=== PATIENT | female | born 1970 | race Caucasian/White ===

== ENCOUNTER 2024-01-31 15:51 | Inpatient (IN) ==
[2024-01-31] MEDS ORDERED: IOPAMIDOL 100 ML BOTTLE IV ONE (15:52)
[2024-01-31] MEDS: METHOCARBAMOL 750 MG TABLET PO ONE (17:27)
[2024-01-31] MEDS: oxyCODONE IR 5 MG TABLET PO ONE (17:29)
[2024-01-31] MEDS: KETOROLAC 30 MG/ML VIAL IM ONE (17:29)
[2024-01-31 18:41] LABS: Basophils # (Auto) 0.04 K/mcL (0.00-0.30); Basophils % (Auto) 0.2 % (0.0-2.0); Eosinophils # (Auto) 0.01 K/mcL (0.00-0.70); Eosinophils % (Auto) 0 % (0.0-7.0); Hematocrit 30.3 % (34.1-44.9); Lymphocytes # (Auto) 1.07 K/mcL (1.50-4.80); Lymphocytes % (Auto) 4.4 % (15.5-49.0); Mean Cell Volume 69.8 fL (80.0-100.0); Mean Corpuscular HGB Conc 29.7 g/dL (31.0-36.0); Mean Platelet Volume 10.1 fL (8.8-12.5); Monocytes # (Auto) 1.68 K/mcL (0.10-0.90); Neutrophils % (Auto) 87.6 % (38.0-78.0); Platelet Count 495 K/mcL (140-440); RBC 4.34 M/mcL (3.59-5.38); Red Cell Distribution Width 16.3 % (11.5-14.5); WBC 24.2 K/mcL (4.5-11.0)
[2024-01-31 18:46] LABS: Blood Urea Nitrogen 15 mg/dL (6-20); Carbon Dioxide 22 mmol/L (22-30); Chloride 95 mmol/L (96-108); Glomerular Filtration Rate 105; Glucose 220 mg/dL (70-105); Potassium 4.1 mmol/L (3.3-5.1); Sodium 133 mmol/L (133-145)
[2024-01-31 19:05] LABS: Erythrocyte Sedimentation Rate 77 mm/hr (0-30)
[2024-01-31] MEDS: CEFEPIME 2 GM VIAL IV ONE (19:24)
[2024-01-31 19:37] LABS: Crystals,Body Fluid None Seen (None Seen)
[2024-01-31 19:50] LABS: Glucose,Synovial Fluid < 2 mg/dL
[2024-01-31 20:08] LABS: Appearance,Synovial Fluid Purulent; Color,Synovial Fluid White; Lymphocytes,Synovial Fluid 0 %; Neutrophils,Synovial Fluid 95 % (0-25); Nucleated Cells,Synovial Fld 186300 /cumm; Other Cells,Synovial Fluid 5 %
[2024-01-31] MEDS: 0.9 % SODIUM CHLORIDE 1,000 ML IV ONE (20:47)
[2024-01-31] MEDS: HYDROmorphone 1 MG/ML SYRINGE IV ONE (20:52)
[2024-01-31] MEDS: VANCOMYCIN 1,500 MG in DEXTROSE 5% IN WATER 500 ML IV ONE (21:06)
[2024-02-01] MEDS ORDERED: VANCOMYCIN PER PHARMACY IV SCH (00:50)
[2024-02-01] MEDS: ACETAMINOPHEN 1,000 MG/100 ML BAG IV ONE (00:59)
[2024-02-01] MEDS: 0.9 % SODIUM CHLORIDE 500 ML IV ONE (01:46)
[2024-02-01] MEDS: LORazepam 2 MG/ML VIAL IV PRN (01:59)
[2024-02-01] MEDS: CEFEPIME 2 GM VIAL IV SCH (02:22)
[2024-02-01] MEDS: LOSARTAN 50 MG TABLET PO ONE ×2 (02:23→07:41)
[2024-02-01] MEDS: morphine 4 MG/ML VIAL IV PRN ×2 (02:24→06:53)
[2024-02-01] MEDS: LORazepam 2 MG/ML VIAL ONE ×2 (02:27→04:25)
[2024-02-01] MEDS: morphine 4 MG/ML VIAL ONE (02:28)
[2024-02-01] MEDS ORDERED: DEXTROSE 31 GM ORAL.SUSP PO PRN (04:06)
[2024-02-01] MEDS ORDERED: DEXTROSE 50% 50 ML VIAL IV PRN (04:06)
[2024-02-01] MEDS: METHOCARBAMOL 1,000 MG/10 ML VIAL IV ONE (04:11)
[2024-02-01] MEDS: LORazepam 2 MG/ML VIAL IV ONE (04:11)
[2024-02-01] MEDS: 0.9 % SODIUM CHLORIDE 1,000 ML IV SCH (04:11)
[2024-02-01] MEDS: DEXTROSE 50% 50 ML VIAL IV ONE (04:12)
[2024-02-01] MEDS: METHOCARBAMOL 1,000 MG/10 ML VIAL ONE (04:25)
[2024-02-01] MEDS: DEXTROSE 50% 50 ML SYRINGE IV ONE (04:25)
[2024-02-01 06:41] LABS: Basophils # (Auto) 0.03 K/mcL (0.00-0.30); Basophils % (Auto) 0.2 % (0.0-2.0); Eosinophils # (Auto) 0.01 K/mcL (0.00-0.70); Eosinophils % (Auto) 0.1 % (0.0-7.0); Hematocrit 32.8 % (34.1-44.9); Hemoglobin 8.7 g/dL (11.2-15.7); Lymphocytes # (Auto) 1.04 K/mcL (1.50-4.80); Lymphocytes % (Auto) 6.1 % (15.5-49.0); Mean Cell Volume 76.8 fL (80.0-100.0); Mean Corpuscular HGB Conc 26.5 g/dL (31.0-36.0); Mean Platelet Volume 9.7 fL (8.8-12.5); Monocytes # (Auto) 1.67 K/mcL (0.10-0.90); Monocytes % (Auto) 9.7 % (1.0-12.0); Neutrophils % (Auto) 83.2 % (38.0-78.0); Platelet Count 393 K/mcL (140-440); RBC 4.27 M/mcL (3.59-5.38); Red Cell Distribution Width 16.8 % (11.5-14.5); WBC 17.2 K/mcL (4.5-11.0)
[2024-02-01] MEDS: INSULIN GLARGINE, HUMAN 1 UNIT/0.01 ML SQ ONE (06:45)
[2024-02-01] MEDS: 0.9 % SODIUM CHLORIDE 10 ML SYRINGE IV SCH ×2 (06:46→21:45)
[2024-02-01 06:52] LABS: ALT/SGPT 15 U/L (<40); AST/SGOT 21 U/L (<32); Albumin 3.2 gm/dL (3.2-5.2); Albumin/Globulin Ratio 0.8 (1.0-2.3); Alkaline Phosphatase 123 U/L (39-117); Bilirubin,Direct < 0.2 mg/dL (0-0.3); Bilirubin,Total 0.4 mg/dL (0.1-1.0); Blood Urea Nitrogen 14 mg/dL (6-20); Calcium 8.3 mg/dL (8.6-10.4); Carbon Dioxide 16 mmol/L (22-30); Chloride 98 mmol/L (96-108); Globulin 3.8 gm/dL (2.2-3.7); Glomerular Filtration Rate 111; Glucose 229 mg/dL (70-105); Lactate Dehydrogenase 189 U/L (135-225); Phosphorous 3.2 mg/dL (2.5-4.5); Potassium 3.8 mmol/L (3.3-5.1); Sodium 130 mmol/L (133-145); Triglycerides 108 mg/dL (<150); Uric Acid 2.8 mg/dL (2.5-8.0)
[2024-02-01] MEDS: ACETAMINOPHEN 1,000 MG/100 ML BAG IV PRN (06:54)
[2024-02-01] MEDS: INSULIN LISPRO 1 UNIT/0.01 ML UNIT SQ SCH (07:49)
[2024-02-01] MEDS ORDERED: NALOXONE HCL 0.4 MG/ML VIAL IV PRN ×2 (07:53→14:09)
[2024-02-01 11:00] LABS: Hemoglobin A1C 7.8 % Hgb (4.0-6.0)
[2024-02-01] MEDS ORDERED: PHENYLephrine 1 MG/10 ML SYRINGE (ANEST) ONE (12:25)
[2024-02-01] MEDS ORDERED: GLYCOPYRROLATE 0.2 MG/ML VIAL IV ONE (12:25)
[2024-02-01] MEDS ORDERED: LIDOCAINE 2% PF 5 ML VIAL ONE (12:25)
[2024-02-01] MEDS ORDERED: KETOROLAC 30 MG/ML VIAL ONE (12:25)
[2024-02-01] MEDS ORDERED: DEXAMETHASONE 10 MG/ML VIAL ONE (12:25)
[2024-02-01] MEDS ORDERED: ONDANSETRON 4 MG/2 ML VIAL ONE (12:25)
[2024-02-01] MEDS ORDERED: MIDAZOLAM 2 MG/2 ML VIAL ONE (12:26)
[2024-02-01] MEDS ORDERED: KETAMINE 50 MG/ML Syringe IV ONE ×2 (12:26→13:30)
[2024-02-01] MEDS ORDERED: PROPOFOL 200 MG/20 ML VIAL IV ONE (12:26)
[2024-02-01] MEDS ORDERED: ePHEDrine 50 MG/5 ML SYRINGE (ANEST) IV ONE ×2 (12:26→14:02)
[2024-02-01] MEDS ORDERED: METOCLOPRAMIDE 10 MG/2 ML VIAL ONE (12:26)
[2024-02-01] MEDS: VANCOMYCIN 2,000 MG in DEXTROSE 5% IN WATER 500 ML IV SCH (13:30)
[2024-02-01] MEDS ORDERED: fentaNYL 100 MCG/2 ML VIAL ONE ×2 (13:31→13:49)
[2024-02-01] MEDS ORDERED: HYDROmorphone 0.5 MG/0.5 ML SYRINGE ONE ×2 (13:42→13:49)
[2024-02-01] MEDS: BUPIVACAINE 0.5% 50 ML VIAL IJ ONE (13:46)
[2024-02-01] MEDS ORDERED: IPRATROPIUM/ALBUTEROL 3 ML AMPUL.NEB NEB PRN (14:09)
[2024-02-01] MEDS ORDERED: ONDANSETRON 4 MG/2 ML VIAL IV PRN (14:09)
[2024-02-01] MEDS ORDERED: fentaNYL 100 MCG/2 ML VIAL IV PRN (14:09)
[2024-02-01] MEDS ORDERED: HYDROmorphone 0.5 MG/0.5 ML SYRINGE IV PRN (14:09)
[2024-02-01] MEDS ORDERED: 0.9 % SODIUM CHLORIDE 10 ML SYRINGE IV PRN (14:32)
[2024-02-01] MEDS: LACTATED RINGERS 1,000 ML IV SCH (16:18)
[2024-02-01] MEDS ORDERED: SODIUM CHLORIDE IRRIG SOLUTION 250 ML BOTTLE IRR ONE (16:20)
[2024-02-02 07:14] LABS: ALT/SGPT 37 U/L (<40); AST/SGOT 60 U/L (<32); Albumin 3.1 gm/dL (3.2-5.2); Albumin/Globulin Ratio 0.9 (1.0-2.3); Alkaline Phosphatase 136 U/L (39-117); Bilirubin,Direct < 0.2 mg/dL (0-0.3); Bilirubin,Total 0.2 mg/dL (0.1-1.0); Blood Urea Nitrogen 21 mg/dL (6-20); Calcium 8.1 mg/dL (8.6-10.4); Carbon Dioxide 19 mmol/L (22-30); Chloride 95 mmol/L (96-108); Globulin 3.5 gm/dL (2.2-3.7); Glomerular Filtration Rate 111; Glucose 398 mg/dL (70-105); Lactate Dehydrogenase 189 U/L (135-225); Phosphorous 2.8 mg/dL (2.5-4.5); Sodium 128 mmol/L (133-145); Triglycerides 131 mg/dL (<150); Uric Acid 3.9 mg/dL (2.5-8.0)
[2024-02-02 07:21] LABS: Basophils # (Auto) 0.01 K/mcL (0.00-0.30); Basophils % (Auto) 0.1 % (0.0-2.0); Eosinophils # (Auto) 0 K/mcL (0.00-0.70); Eosinophils % (Auto) 0 % (0.0-7.0); Hematocrit 23.5 % (34.1-44.9); Hemoglobin 6.8 g/dL (11.2-15.7); Lymphocytes # (Auto) 0.89 K/mcL (1.50-4.80); Lymphocytes % (Auto) 6.1 % (15.5-49.0); Mean Cell Volume 70.8 fL (80.0-100.0); Mean Corpuscular HGB Conc 28.9 g/dL (31.0-36.0); Mean Platelet Volume 10.1 fL (8.8-12.5); Monocytes # (Auto) 1.34 K/mcL (0.10-0.90); Monocytes % (Auto) 9.1 % (1.0-12.0); Platelet Count 325 K/mcL (140-440); RBC 3.32 M/mcL (3.59-5.38); Red Cell Distribution Width 16.6 % (11.5-14.5); WBC 14.7 K/mcL (4.5-11.0)
[2024-02-02 08:32] LABS: Hematocrit 24.2 % (34.1-44.9); Hemoglobin 7.2 g/dL (11.2-15.7)
[2024-02-02] MEDS: ACETAMINOPHEN 1,000 MG/100 ML BAG IV PRN (08:40)
[2024-02-02] MEDS: INSULIN GLARGINE, HUMAN 1 UNIT/0.01 ML SQ SCH (08:57)
[2024-02-02] MEDS: 0.9 % SODIUM CHLORIDE 250 ML IV SCH ×2 (09:12→19:36)
[2024-02-02] MEDS: 0.9 % SODIUM CHLORIDE 500 ML IV ONE (09:17)
[2024-02-02] MEDS: INSULIN LISPRO 1 UNIT/0.01 ML UNIT SQ ONE (15:01)
[2024-02-02] MEDS: INSULIN GLARGINE, HUMAN 1 UNIT/0.01 ML SQ ONE (15:02)
[2024-02-02 16:47] LABS: Hematocrit 23.2 % (34.1-44.9); Hemoglobin 6.8 g/dL (11.2-15.7)
[2024-02-02] MEDS: INSULIN LISPRO 1 UNIT/0.01 ML UNIT SQ SCH (17:36)
[2024-02-02] MEDS: CYCLOBENZAPRINE 10 MG TABLET PO ONE (22:31)
[2024-02-02] MEDS: SENNOSIDES 1 TABLET PO PRN (22:31)
[2024-02-03 06:49] LABS: Basophils # (Auto) 0.03 K/mcL (0.00-0.30); Basophils % (Auto) 0.2 % (0.0-2.0); Eosinophils # (Auto) 0.23 K/mcL (0.00-0.70); Eosinophils % (Auto) 1.2 % (0.0-7.0); Hematocrit 28.8 % (34.1-44.9); Hemoglobin 8.8 g/dL (11.2-15.7); Lymphocytes % (Auto) 9.1 % (15.5-49.0); Mean Cell Volume 71.5 fL (80.0-100.0); Mean Corpuscular HGB Conc 30.6 g/dL (31.0-36.0); Monocytes # (Auto) 1.77 K/mcL (0.10-0.90); Neutrophils % (Auto) 79.3 % (38.0-78.0); Platelet Count 418 K/mcL (140-440); RBC 4.03 M/mcL (3.59-5.38); Red Cell Distribution Width 17.5 % (11.5-14.5); WBC 19.7 K/mcL (4.5-11.0)
[2024-02-03 07:09] LABS: ALT/SGPT 50 U/L (<40); AST/SGOT 50 U/L (<32); Albumin 3.4 gm/dL (3.2-5.2); Albumin/Globulin Ratio 0.9 (1.0-2.3); Alkaline Phosphatase 152 U/L (39-117); Bilirubin,Direct < 0.2 mg/dL (0-0.3); Bilirubin,Total 0.3 mg/dL (0.1-1.0); Blood Urea Nitrogen 15 mg/dL (6-20); Carbon Dioxide 20 mmol/L (22-30); Chloride 97 mmol/L (96-108); Globulin 3.8 gm/dL (2.2-3.7); Glomerular Filtration Rate 120; Glucose 272 mg/dL (70-105); Lactate Dehydrogenase 218 U/L (135-225); Sodium 132 mmol/L (133-145); Triglycerides 186 mg/dL (<150); Uric Acid 3.4 mg/dL (2.5-8.0)
[2024-02-03] MEDS: INSULIN GLARGINE, HUMAN 1 UNIT/0.01 ML SQ SCH (08:46)
[2024-02-03] MEDS: ceFAZolin 1 GM VIAL IV SCH (08:46)
[2024-02-03] MEDS: PANTOPRAZOLE 40 MG VIAL IV ONE (11:16)
[2024-02-03] MEDS: oxyCODONE IR 5 MG TABLET PO PRN (11:16)
[2024-02-03] MEDS: INSULIN LISPRO 1 UNIT/0.01 ML UNIT SQ SCH (11:40)
[2024-02-03] MEDS: ACETAMINOPHEN 500 MG TABLET PO PRN (14:17)
[2024-02-03] MEDS: CYCLOBENZAPRINE 10 MG TABLET PO PRN (14:17)
[2024-02-03 16:21] LABS: Basophils # (Auto) 0.03 K/mcL (0.00-0.30); Basophils % (Auto) 0.2 % (0.0-2.0); Eosinophils # (Auto) 0.23 K/mcL (0.00-0.70); Eosinophils % (Auto) 1.3 % (0.0-7.0); Hematocrit 27.3 % (34.1-44.9); Hemoglobin 8.3 g/dL (11.2-15.7); Lymphocytes # (Auto) 2.16 K/mcL (1.50-4.80); Lymphocytes % (Auto) 12.1 % (15.5-49.0); Mean Cell Volume 71.1 fL (80.0-100.0); Mean Corpuscular HGB Conc 30.4 g/dL (31.0-36.0); Mean Platelet Volume 9.9 fL (8.8-12.5); Monocytes % (Auto) 10.7 % (1.0-12.0); Platelet Count 436 K/mcL (140-440); RBC 3.84 M/mcL (3.59-5.38); Red Cell Distribution Width 17.5 % (11.5-14.5); WBC 17.8 K/mcL (4.5-11.0)
[2024-02-03] MEDS: PANTOPRAZOLE 40 MG VIAL IV SCH (17:24)
[2024-02-03] MEDS: MAGNESIUM HYDROXIDE 30 ML ORAL.SUSP PO PRN (20:15)
[2024-02-03] MEDS: NEUTRA PHOS 1 PACKET PO SCH (20:16)
[2024-02-03] MEDS: morphine 4 MG/ML VIAL IV PRN (20:55)
[2024-02-03] MEDS: ONDANSETRON 4 MG/2 ML VIAL IV PRN (20:55)
[2024-02-03] MEDS: morphine 15 MG TAB.SR.12H PO SCH (20:55)
[2024-02-04 06:47] LABS: Basophils # (Auto) 0.04 K/mcL (0.00-0.30); Basophils % (Auto) 0.2 % (0.0-2.0); Eosinophils # (Auto) 0.25 K/mcL (0.00-0.70); Eosinophils % (Auto) 1.2 % (0.0-7.0); Hematocrit 28.2 % (34.1-44.9); Hemoglobin 8.6 g/dL (11.2-15.7); Lymphocytes # (Auto) 2.79 K/mcL (1.50-4.80); Lymphocytes % (Auto) 13.4 % (15.5-49.0); Mean Cell Volume 72.1 fL (80.0-100.0); Mean Corpuscular HGB Conc 30.5 g/dL (31.0-36.0); Mean Platelet Volume 9.8 fL (8.8-12.5); Monocytes # (Auto) 2.51 K/mcL (0.10-0.90); Monocytes % (Auto) 12.1 % (1.0-12.0); Neutrophils % (Auto) 69.2 % (38.0-78.0); Platelet Count 478 K/mcL (140-440); RBC 3.91 M/mcL (3.59-5.38); Red Cell Distribution Width 17.8 % (11.5-14.5); WBC 20.8 K/mcL (4.5-11.0)
[2024-02-04 07:30] LABS: ALT/SGPT 42 U/L (<40); AST/SGOT 32 U/L (<32); Albumin 3.2 gm/dL (3.2-5.2); Albumin/Globulin Ratio 0.9 (1.0-2.3); Alkaline Phosphatase 147 U/L (39-117); Bilirubin,Total 0.3 mg/dL (0.1-1.0); Blood Urea Nitrogen 13 mg/dL (6-20); Calcium 8.7 mg/dL (8.6-10.4); Carbon Dioxide 22 mmol/L (22-30); Chloride 96 mmol/L (96-108); Globulin 3.7 gm/dL (2.2-3.7); Glomerular Filtration Rate 120; Glucose 176 mg/dL (70-105); Phosphorous 3.4 mg/dL (2.5-4.5); Potassium 3.7 mmol/L (3.3-5.1); Sodium 132 mmol/L (133-145)
[2024-02-04] MEDS: ERTAPENEM 1 GM in 0.9 % SODIUM CHLORIDE 50 ML IV SCH (12:34)
[2024-02-04 17:13] VITALS: TEMP 97.1; O2SAT 94
[2024-02-05] MEDS ORDERED: LOSARTAN 50 MG TABLET PO SCH (09:00)
[2024-02-05] MEDS ORDERED: ATORVASTATIN 40 MG TABLET PO SCH (09:00)
== END 2024-02-04 15:39 | disposition short-term general hospital (02) | DRG 485 ==
LOC: ED 15:51 → MEDSUR 22:07 → ED 22:07 → MEDSUR 02-01 01:15
PROVIDERS: ADMIT Student in an Organized Health Care Education/Training Program; ATTEND Internal Medicine
PROC: SCOKNEE (2024-02-01 13:15)